=== PATIENT | female | born 1990 | race Caucasian/White ===

== ENCOUNTER 2022-04-11 09:25 | Outpatient (CLI) | payer OTHER ==
--- NOTE | 2022-04-11 10:24 | XRAY Report ---
PROCEDURE: Wrist 2 View RT INDICATIONS: RIGHT WRIST PAIN TECHNIQUE: 2 views of the wrist were acquired. COMPARISON: None FINDINGS: Bones: No fractures or dislocations. No suspicious bony lesions. Scaphoid view: Scaphoid intact Soft tissues: No suspicious soft tissue calcifications. IMPRESSION: No evidence acute bony abnormality of the right wrist. If clinical suspicion and/or symptoms persist, further assessment with repeat plain films or advanced imaging (e.g., CT, MRI, or bone scan) may be helpful for further assessment. Reviewed by: Jeffrey Callaway MD on 04/11/2022 10:23 AM [facility] Approved by: Jeffrey Callaway MD on 04/11/2022 10:23 AM [facility] Station ID: [id number]
== END 2022-04-11 09:26 | disposition home or self-care (01) ==
LOC: DI 09:25
PROVIDERS: ATTEND Nurse Practitioner
DX: M25.531 Pain in right wrist (principal)